=== PATIENT | female | born 1980 | race Caucasian/White ===

== ENCOUNTER 2017-12-30 09:48 | Emergency (ER) | payer MEDICAID ==
[~2017-12-30] VITALS: Ht 154.9 cm; Wt 72.6 kg
[2017-12-30 09:56] VITALS: BP 107/70
--- NOTE | 2017-12-30 10:07 | NUR ---
PT AMBULATED TO ER BED 06
--- NOTE | 2017-12-30 10:10 | NUR ---
37Y/F BIB SELF C/O LOWER ABDOMINAL PAIN X 4 DAYS. LAST PEROID 11/20/17. DIARRHEA X 3 EPISODES X YESTERDAY, DENIES N/V. SKIN IS PINK/WARM/DRY; AAOX4 WITH EVEN AND STEADY GAIT; LUNGS CLEAR BL; HR EVEN AND REGULAR; PATIENT STATES PAIN OF 5/10 AT THIS TIME; VSS; PATIENT POSITIONED FOR COMFORT; HOB ELEVATED; BEDRAILS UP X 1; BED DOWN. ER MD MADE AWARE OF PT STATUS.
--- NOTE | 2017-12-30 10:50 | NUR ---
Ultrasound at bedside.
[2017-12-30 11:02] LABS: BASOPHILS % (AUTO) 0.5 % (0.0-2.0); EOSINOPHILS # (AUTO) 0.1 K/uL (0-0.4); EOSINOPHILS % (AUTO) 1.4 % (0.0-4.0); HEMATOCRIT 37.3 % (36-48); HEMOGLOBIN 12.4 g/dL (12.0-16.0); LYMPHOCYTES # (AUTO) 2.1 K/uL (2.5-16.5); LYMPHOCYTES % (AUTO) 26.6 % (20.5-51.1); MEAN CORPUSCULAR HEMOGLOBIN 29 pg (27-31); MEAN CORPUSCULAR HGB CONC 33 g/dL (33-37); MEAN CORPUSCULAR VOLUME 86.8 fL (80-94); MONOCYTES # (AUTO) 0.7 K/uL (0.8-1.0); MONOCYTES % (AUTO) 8.6 % (1.7-9.3); NEUTROPHILS # (AUTO) 4.9 K/uL (1.8-7.7); NEUTROPHILS % (AUTO) 62.9 % (42.2-75.2); PLATELET COUNT (AUTO) 181 K/uL (140-450); RED CELL DISTRIBUTION WIDTH 13.2 % (11.6-13.7); WHITE BLOOD COUNT (AUTO) 7.8 K/uL (4.8-10.8)
[2017-12-30 11:29] LABS: ALBUMIN 3.4 g/dL (3.4-5.0); CARBON DIOXIDE 23.9 mmol/L (21-32); CREATININE 0.7 mg/dL (0.6-1.3); POTASSIUM 3.9 mmol/L (3.5-5.1); TOTAL BILIRUBIN 0.4 mg/dL (0.0-1.0)
[2017-12-30 11:52] LABS: APPEARANCE,URINE CLEAR (CLEAR); BILIRUBIN,URINE NEGATIVE (NEGATIVE); BLOOD, URINE 1+ (NEGATIVE); COLOR,URINE YELLOW (YELLOW); LEUKOCYTE ESTERASE ,URINE NEGATIVE (NEGATIVE); NITRITE, URINE NEGATIVE (NEGATIVE); PH,URINE 5.5 (5.0-9.0); UGLUCOSE NEGATIVE (NEGATIVE)
[2017-12-30 11:55] LABS: RBC,URINE 0-5 (RARE) /HPF (0-5); WBC,URINE 0-5 (RARE) /HPF (0-5)
--- NOTE | 2017-12-30 12:32 | NUR ---
Patient discharged with v/s stable. Written and verbal after care instructions given and explained. Patient verbalized understanding. Ambulatory with steady gait. All questions addressed prior to discharge. Advised to follow up with PMD.
[2017-12-30 12:33] VITALS: BP 99/70
== END 2017-12-30 12:32 | disposition home or self-care (01) ==
LOC: MED 09:48
DX: R19.7 Diarrhea, unspecified (principal); R10.9 Unspecified abdominal pain
CPT/HCPCS: 36415; 76817; 80053; 81001; 81025; 84702; 85025; 99285; Q0092

== ENCOUNTER 2018-01-01 11:19 | Emergency (ER) | payer MEDICAID ==
[~2018-01-01] VITALS: Ht 154.9 cm; Wt 72.6 kg
[2018-01-01 11:24] VITALS: BP 133/80
--- NOTE | 2018-01-01 11:24 | NUR ---
Pt taken to bed 11.
--- NOTE | 2018-01-01 11:35 | NUR ---
37 YO F BIB SELF FOR RECHECK. PT REPORTS SHE WAS HERE ON THURSDAY AND STATES THEY WERE UNABLE TO FIND A HEARTBEAT ON U/S. A0. PT DENIES ABD PAIN AT THIS TIME. DENIES N/V. PT A&O X 4. GCS 15. CMS INTACT. RR EVEN AND UNLABORED. LUNGS BILAT CLEAR. ABD SOFT, NON-TENDER. ER MD ROCK NOTIFIED. SAFETY PRECAUTIONS IN PLACE. PT NEEDS MET. WILL CONTINUE TO MONITOR.
--- NOTE | 2018-01-01 11:35 | NUR ---
LAB AT BEDSIDE AT THIS TIME.
[2018-01-01 12:38] VITALS: BP 133/80
--- NOTE | 2018-01-01 12:43 | NUR ---
Patient discharged with v/s stable. Written and verbal after care instructions given and explained. Patient verbalized understanding. Ambulatory with steady gait. All questions addressed prior to discharge. Advised to follow up with PMD and given referral to Dr MARIELOS Camacho for ENTRY LEVEL PROGRAMMER.
== END 2018-01-01 12:43 | disposition home or self-care (01) ==
LOC: MED 11:19
DX: Z34.91 Encounter for supervision of normal pregnancy, unspecified, first trimester (principal); Z3A.01 Less than 8 weeks gestation of pregnancy
CPT/HCPCS: 36415; 84702; 99283

== ENCOUNTER 2018-02-05 18:32 | Emergency (ER) | payer MEDICAID ==
[~2018-02-05] VITALS: Ht 154.9 cm; Wt 73.9 kg
[2018-02-05 18:39] VITALS: BP 120/69
[2018-02-05 19:12] LABS: BASOPHILS % (AUTO) 0.3 % (0.0-2.0); EOSINOPHILS # (AUTO) 0.1 K/uL (0-0.4); EOSINOPHILS % (AUTO) 1.2 % (0.0-4.0); HEMATOCRIT 38.5 % (36-48); HEMOGLOBIN 13.3 g/dL (12.0-16.0); LYMPHOCYTES # (AUTO) 2.7 K/uL (2.5-16.5); LYMPHOCYTES % (AUTO) 26.3 % (20.5-51.1); MEAN CORPUSCULAR HEMOGLOBIN 29 pg (27-31); MEAN CORPUSCULAR HGB CONC 35 g/dL (33-37); MONOCYTES # (AUTO) 0.8 K/uL (0.8-1.0); MONOCYTES % (AUTO) 7.9 % (1.7-9.3); NEUTROPHILS # (AUTO) 6.5 K/uL (1.8-7.7); NEUTROPHILS % (AUTO) 64.3 % (42.2-75.2); PLATELET COUNT (AUTO) 204 K/uL (140-450); RED BLOOD CELL COUNT(AUTO) 4.53 MIL/uL (4.20-5.40); RED CELL DISTRIBUTION WIDTH 12.6 % (11.6-13.7); WHITE BLOOD COUNT (AUTO) 10.1 K/uL (4.8-10.8)
[2018-02-05 19:16] LABS: APPEARANCE,URINE CLEAR (CLEAR); BILIRUBIN,URINE NEGATIVE (NEGATIVE); BLOOD, URINE 2+ (NEGATIVE); COLOR,URINE YELLOW (YELLOW); LEUKOCYTE ESTERASE ,URINE NEGATIVE (NEGATIVE); NITRITE, URINE NEGATIVE (NEGATIVE); PH,URINE 6.5 (5.0-9.0); UGLUCOSE NEGATIVE (NEGATIVE)
[2018-02-05 19:35] LABS: RBC,URINE 11-20 (MOD) /HPF (0-5)
[2018-02-05 23:20] VITALS: BP 108/78
== END 2018-02-05 23:20 | disposition home or self-care (01) ==
LOC: MED 18:32
DX: O20.0 Threatened abortion (principal); O26.891 Other specified pregnancy related conditions, first trimester; R82.71 Bacteriuria; Z3A.11 11 weeks gestation of pregnancy
CPT/HCPCS: 36415; 76817; 81001; 81025; 84702; 85025; 86900; 86901; 87086; 99285

== ENCOUNTER 2018-02-06 23:45 | Emergency (ER) | payer MEDICAID ==
[~2018-02-06] VITALS: Ht 154.9 cm; Wt 76.2 kg
[2018-02-06 23:57] VITALS: BP 109/69
--- NOTE | 2018-02-07 | NUR ---
TO BED # 4 AMBULATORY, REPORT GIVEN TO OJ AMATO
--- NOTE | 2018-02-07 00:05 | NUR ---
PATIENT PRESENTS TO ED WITH VAGINAL BLEEDINGX1 DAY. PATIENT STATES SHE IS CURRENTLY HAVING A MISCARRIAGE. PT DENIES N/V/D; SKIN IS PINK/WARM/DRY; AAOX4 WITH EVEN AND STEADY GAIT; LUNGS CLEAR BL; HR EVEN AND REGULAR; PT DENIES ANY FEVER, CP, SOB, OR COUGH AT THIS TIME; PATIENT STATES PAIN OF 0/10 AT THIS TIME; VSS; PATIENT POSITIONED FOR COMFORT; HOB ELEVATED; BEDRAILS UP X1; BED DOWN. ER MD MADE AWARE OF PT STATUS.
[2018-02-07 00:35] LABS: BASOPHILS % (AUTO) 0.4 % (0.0-2.0); EOSINOPHILS # (AUTO) 0.1 K/uL (0-0.4); HEMATOCRIT 35.9 % (36-48); HEMOGLOBIN 12.3 g/dL (12.0-16.0); LYMPHOCYTES # (AUTO) 3.5 K/uL (2.5-16.5); LYMPHOCYTES % (AUTO) 33.7 % (20.5-51.1); MEAN CORPUSCULAR HEMOGLOBIN 29 pg (27-31); MEAN CORPUSCULAR HGB CONC 34 g/dL (33-37); MEAN CORPUSCULAR VOLUME 84.6 fL (80-94); MONOCYTES # (AUTO) 0.8 K/uL (0.8-1.0); MONOCYTES % (AUTO) 7.4 % (1.7-9.3); NEUTROPHILS # (AUTO) 5.9 K/uL (1.8-7.7); NEUTROPHILS % (AUTO) 57.5 % (42.2-75.2); PLATELET COUNT (AUTO) 196 K/uL (140-450); RED BLOOD CELL COUNT(AUTO) 4.24 MIL/uL (4.20-5.40); WHITE BLOOD COUNT (AUTO) 10.4 K/uL (4.8-10.8)
[2018-02-07 00:42] LABS: CARBON DIOXIDE 26.3 mmol/L (21-32); CREATININE 0.8 mg/dL (0.6-1.3); POTASSIUM 4.3 mmol/L (3.5-5.1)
[2018-02-07 00:49] LABS: ALBUMIN 3.7 g/dL (3.4-5.0); TOTAL BILIRUBIN 0.4 mg/dL (0.0-1.0)
[2018-02-07 02:50] VITALS: BP 109/69
== END 2018-02-07 02:49 | disposition home or self-care (01) ==
LOC: MED 23:45
DX: O03.4 Incomplete spontaneous abortion without complication (principal); Z3A.11 11 weeks gestation of pregnancy
CPT/HCPCS: 36415; 76801; 80053; 84702; 85025; 99285; Q0092

== ENCOUNTER 2018-06-20 19:53 | Emergency (ER) | payer MEDICAID, OTHER ==
[~2018-06-20] VITALS: Ht 154.9 cm; Wt 75.3 kg
[2018-06-20 19:57] VITALS: BP 137/88
[2018-06-20] MEDS ORDERED: AMOXICILLIN 500 MG CAP PO ONE (22:15)
[2018-06-20] MEDS ORDERED: IBUPROFEN 600 MG TAB PO ONE (22:15)
[2018-06-20] MEDS ORDERED: HYDROcodone/APAP 5/325 MG 1 TAB TAB PO ONE (22:15)
[2018-06-20 23:00] VITALS: BP 128/85
== END 2018-06-20 23:00 | disposition home or self-care (01) ==
LOC: MED 19:53
DX: J02.9 Acute pharyngitis, unspecified (principal); I88.9 Nonspecific lymphadenitis, unspecified
CPT/HCPCS: 99283

== ENCOUNTER 2018-11-08 07:14 | Emergency (ER) | payer OTHER ==
[~2018-11-08] VITALS: Ht 154.9 cm; Wt 72.6 kg
[2018-11-08 07:29] VITALS: BP 140/88
--- NOTE | 2018-11-08 07:34 | NUR ---
PT AMBULATED TO ER BED 07
--- NOTE | 2018-11-08 07:40 | NUR ---
THIS PT BIB SELF TO THE ED WITH THE CHIEF C/O NON RADIATING CONSTANT LEFT CHEST PAIN STARTED YESTERDAY. STATES IT HURTS MORE WHEN BREATH IN. DENIES NAUSEA OR VOMITING. REPORTS DIZZINESS. VSS. LUNGS CLEAR ON AUSCULTATION. S1S2 HEARD. DENIES ANY COUGH. DENIES TAKING ANY MEDICINE FOR PAIN. DENIES ANY MEDICAL HX.
--- NOTE | 2018-11-08 08:05 | NUR ---
EKG IN PROCESS. LAB AT BEDSIDE.
[2018-11-08 08:22] LABS: BASOPHILS % (AUTO) 0.4 % (0.0-2.0); EOSINOPHILS # (AUTO) 0.1 K/uL (0-0.4); EOSINOPHILS % (AUTO) 1.1 % (0.0-4.0); HEMATOCRIT 40.5 % (36-48); HEMOGLOBIN 13.6 g/dL (12.0-16.0); LYMPHOCYTES # (AUTO) 1.8 K/uL (2.5-16.5); LYMPHOCYTES % (AUTO) 20.6 % (20.5-51.1); MEAN CORPUSCULAR HEMOGLOBIN 29 pg (27-31); MEAN CORPUSCULAR HGB CONC 34 g/dL (33-37); MEAN CORPUSCULAR VOLUME 86.3 fL (80-94); MONOCYTES # (AUTO) 0.9 K/uL (0.8-1.0); MONOCYTES % (AUTO) 10.2 % (1.7-9.3); NEUTROPHILS # (AUTO) 5.9 K/uL (1.8-7.7); NEUTROPHILS % (AUTO) 67.7 % (42.2-75.2); PLATELET COUNT (AUTO) 233 K/uL (140-450); RED CELL DISTRIBUTION WIDTH 13.9 % (11.6-13.7); WHITE BLOOD COUNT (AUTO) 8.7 K/uL (4.8-10.8)
[2018-11-08 08:33] LABS: ANION GAP 15.2 (8-16); CARBON DIOXIDE 25.8 mmol/L (21-32); CREATININE 0.6 mg/dL (0.6-1.3)
[2018-11-08 08:50] LABS: PROTHROMBIN TIME 9.7 secs (10.8-13.4)
[2018-11-08 08:55] LABS: D-DIMER < 100 ng/ml (0-400)
[2018-11-08 09:25] LABS: ALBUMIN 3.6 g/dL (3.4-5.0); TOTAL BILIRUBIN 0.4 mg/dL (0.0-1.0)
[2018-11-08 09:30] LABS: BARBITURATE, URINE NEG ng/ml (NEG <=200); BENZODIAZEPINE, URINE NEG ng/mL (NEG <=200); CANNABINOID, URINE NEG ng/mL (NEG <=50); COCAINE, URINE NEG ng/mL (NEG <=300); OPIATE, URINE NEG ng/mL (NEG <=2000); PHENCYCLIDINE SCREEN,URINE NEG ng/mL (NEG <=25)
--- NOTE | 2018-11-08 09:33 | NUR ---
SLEEPING AT THIS TIME. VSS. CONTINUE ON MONITOR.
--- NOTE | 2018-11-08 09:43 | NUR ---
BEING RE-EVALUATED BY WILMER BAINS.
--- NOTE | 2018-11-08 09:52 | NUR ---
Patient discharged with v/s stable. Written and verbal after care instructions given and explained. Patient alert, oriented and verbalized understanding of instructions. Ambulatory with steady gait. All questions addressed prior to discharge. ID band removed. Patient advised to follow up with PMD. Rx of VISTARIL given. Patient educated on indication of medication including possible reaction and side effects. Opportunity to ask questions provided and answered.
[2018-11-08 09:53] VITALS: BP 110/71
== END 2018-11-08 09:52 | disposition home or self-care (01) ==
LOC: MED 07:14
DX: F41.9 Anxiety disorder, unspecified (principal)
CPT/HCPCS: 36415; 71045; 80053; 80305; 81002; 81025; 83735; 83880; 84484; 85025; 85379; 85610; 85730; 93005; 99284; Q0092

== ENCOUNTER 2019-09-27 08:18 | Emergency (ER) | payer OTHER ==
[~2019-09-27] VITALS: Ht 154.9 cm; Wt 70.8 kg
[2019-09-27 08:22] VITALS: BP 104/65
--- NOTE | 2019-09-27 08:29 | NUR ---
39 YO FEMALE CO OF COUGH AND SORE THROAT X3D. PT STATES PAIN IS 10/10 IN HER THROAT. LUNG SOUNDS CLEAR THROUGHOUT. PT HAS NO PAST MED HX AND IS NOT TAKING ANY RX MEDS AT HOME. NO ONE ELSE AT HOME SICK. PT IS SITTING N BED WITH 1X SIDE RAIL UP.
[2019-09-27] MEDS ORDERED: DEXAMETHASONE 10 MG/ML VIAL IM ONE (08:40)
--- NOTE | 2019-09-27 09:05 | NUR ---
THROAT SWAB FOR STREP AND THROAT CULTURE DONE AND SENT TO LAB.
[2019-09-27 11:13] VITALS: BP 110/73
--- NOTE | 2019-09-27 11:14 | NUR ---
Patient discharged with v/s stable. Written and verbal after care instructions given and explained. Patient alert, oriented and verbalized understanding of instructions. Ambulatory with steady gait. All questions addressed prior to discharge. ID band removed. Patient advised to follow up with PMD. Rx of NORCO AND AMOXICILLIAN given. Patient educated on indication of medication including possible reaction and side effects. Opportunity to ask questions provided and answered.
== END 2019-09-27 11:14 | disposition home or self-care (01) ==
LOC: MED 08:18
DX: J02.9 Acute pharyngitis, unspecified (principal)
CPT/HCPCS: 87081; 96372; 99283; J1100

== ENCOUNTER 2020-03-07 15:48 | Emergency (ER) | payer OTHER, SELFPAY ==
[~2020-03-07] VITALS: Ht 167.6 cm; Wt 59.9 kg
--- NOTE | 2020-03-07 15:59 | NUR ---
PT SEEN AND EVALUATED BY MAGDI BREWSTER. PT SWABBED IN TENT
[2020-03-07 16:07] VITALS: BP 115/82
[2020-03-07 17:37] VITALS: BP 115/82
--- NOTE | 2020-03-07 17:38 | NUR ---
COVID-19 SWAB COLLECTED AND TAKEN TO LAB
== END 2020-03-07 17:38 | disposition home or self-care (01) ==
LOC: EEVIPCON 15:48 → MED 15:48
DX: R05 Cough (principal); Z20.828 Contact with and (suspected) exposure to other viral communicable diseases; Z98.890 Other specified postprocedural states
CPT/HCPCS: 99283; U0003

== ENCOUNTER 2020-04-29 14:31 | Emergency (ER) | payer OTHER, SELFPAY ==
[~2020-04-29] VITALS: Ht 154.9 cm; Wt 75.3 kg
[2020-04-29 14:42] VITALS: BP 132/79
[2020-04-29] MEDS ORDERED: ASPIRIN 325 MG TAB PO ONE (15:05)
--- NOTE | 2020-04-29 15:10 | NUR ---
XRay at bedside
--- NOTE | 2020-04-29 15:20 | NUR ---
C/O 04/02 CONSTANT LEFT CHEST PAIN RADIATING TO LEFT ARM X TODAY. DENIES TRUAM OR N/V.PT AOX 4 , AFIBRILE , AMBULATORY WITH STEADY GAIT, PINK PALPEBRAL CONJUNCTIVA , ANICTERIC SCLERA , SCE , FLAT SOFT ABDOMEN. MED HX: DENIES
--- NOTE | 2020-04-29 15:28 | NUR ---
labs at bedside.
[2020-04-29 15:40] LABS: BASOPHILS # (AUTO) 0.1 K/uL (0.00-0.22); BASOPHILS % (AUTO) 0.6 % (0.0-2.0); EOSINOPHILS # (AUTO) 0.1 K/uL (0-0.4); EOSINOPHILS % (AUTO) 0.9 % (0.0-4.0); HEMATOCRIT 37.8 % (36-48); HEMOGLOBIN 12.2 g/dL (12.0-16.0); LYMPHOCYTES # (AUTO) 2.2 K/uL (2.5-16.5); LYMPHOCYTES % (AUTO) 25.3 % (20.5-51.1); MEAN CORPUSCULAR HEMOGLOBIN 29 pg (27-31); MEAN CORPUSCULAR HGB CONC 32 g/dL (33-37); MEAN CORPUSCULAR VOLUME 88.4 fL (80-94); MONOCYTES # (AUTO) 0.8 K/uL (0.8-1.0); MONOCYTES % (AUTO) 9.3 % (1.7-9.3); NEUTROPHILS # (AUTO) 5.5 K/uL (1.8-7.7); NEUTROPHILS % (AUTO) 63.9 % (42.2-75.2); PLATELET COUNT (AUTO) 201 K/uL (140-450); RED BLOOD CELL COUNT(AUTO) 4.27 MIL/uL (4.20-5.40); RED CELL DISTRIBUTION WIDTH 13.7 % (11.6-13.7); WHITE BLOOD COUNT (AUTO) 8.6 K/uL (4.8-10.8)
--- NOTE | 2020-04-29 15:46 | NUR ---
PT MOVED TO BED 09
[2020-04-29 16:09] LABS: ALBUMIN 3.7 g/dL (3.4-5.0); ANION GAP 15.9 (8-16); CARBON DIOXIDE 22.2 mmol/L (21-32); CREATININE 0.6 mg/dL (0.6-1.3); POTASSIUM 3.1 mmol/L (3.5-5.1); TOTAL BILIRUBIN 0.4 mg/dL (0.0-1.0)
[2020-04-29 16:26] LABS: CREATINE KINASE MB 0.6 ng/mL (0-3.6)
--- NOTE | 2020-04-29 17:12 | NUR ---
DR. PATINO SPEAKING W/ PT AT BEDSIDE
[2020-04-29] MEDS ORDERED: LORazepam 0.5 MG TAB PO ONE (18:20)
[2020-04-29] MEDS ORDERED: KETOROLAC 30 MG/ML VIAL IM ONE (18:20)
[2020-04-29 18:50] VITALS: BP 111/72
== END 2020-04-29 18:49 | disposition home or self-care (01) ==
LOC: MED 14:31
DX: R07.9 Chest pain, unspecified (principal)
CPT/HCPCS: 36415; 71045; 80053; 82550; 82553; 83690; 84484; 85025; 93005; 96372; 99285; J1885; Q0092

== ENCOUNTER 2020-07-18 21:58 | Emergency (ER) | payer OTHER, SELFPAY ==
[~2020-07-18] VITALS: Ht 154.9 cm; Wt 72.6 kg
[2020-07-18 22:07] VITALS: BP 101/71
--- NOTE | 2020-07-18 22:13 | NUR ---
PT AMBULATED BACK TO THE LOBBY, PT IS NOT IN ANY ACUTE DISTRESS AT THIS TIME.
--- NOTE | 2020-07-18 22:30 | NUR ---
LIMA Nichols found pt on floor. did not witness fall. Dr. Gaming paged. no injuries observed or noted. pt a/o x 4.
--- NOTE | 2020-07-18 22:32 | NUR ---
pt helped on to w/c, witnessed 2 emesis episodes, about 300cc each one accompanied with 20 second tonic-clonic .
[2020-07-18] MEDS ORDERED: LORazepam 2 MG/ML VIAL IM ONE (22:42)
--- NOTE | 2020-07-18 22:48 | NUR ---
BLOOD CULTURES AND LABS COLLECTED AND HANDED TO LAB.
--- NOTE | 2020-07-18 23:10 | NUR ---
taken to bed 06
--- NOTE | 2020-07-18 23:20 | NUR ---
TO CT VIA GURNEY ATTACHED TO ROVERTO RN ACCOMPANIED
--- NOTE | 2020-07-18 23:30 | NUR ---
RETURNED FROM CT
--- NOTE | 2020-07-18 23:35 | NUR ---
EKG PERFORMED AT BEDSIDE. EKG READS SINUS RHYTHM @ 98
[2020-07-18 23:40] LABS: BASOPHILS # (AUTO) 0.1 K/uL (0.00-0.22); BASOPHILS % (AUTO) 0.5 % (0.0-2.0); EOSINOPHILS # (AUTO) 0.2 K/uL (0-0.4); EOSINOPHILS % (AUTO) 1.6 % (0.0-4.0); HEMOGLOBIN 11.8 g/dL (12.0-16.0); LYMPHOCYTES % (AUTO) 43.7 % (20.5-51.1); MEAN CORPUSCULAR HEMOGLOBIN 29 pg (27-31); MEAN CORPUSCULAR HGB CONC 33 g/dL (33-37); MEAN CORPUSCULAR VOLUME 87.1 fL (80-94); MONOCYTES # (AUTO) 0.9 K/uL (0.8-1.0); MONOCYTES % (AUTO) 8.2 % (1.7-9.3); NEUTROPHILS # (AUTO) 5.3 K/uL (1.8-7.7); PLATELET COUNT (AUTO) 226 K/uL (140-450); RED BLOOD CELL COUNT(AUTO) 4.13 MIL/uL (4.20-5.40); RED CELL DISTRIBUTION WIDTH 13.7 % (11.6-13.7); WHITE BLOOD COUNT (AUTO) 11.5 K/uL (4.8-10.8)
--- NOTE | 2020-07-18 23:43 | NUR ---
Female Diving Instructor accompanied female patient for Rectal Exam BY .
[2020-07-19] LABS: ANION GAP 15.3 (8-16); CARBON DIOXIDE 23.7 mmol/L (21-32); CREATININE 0.7 mg/dL (0.6-1.3)
--- NOTE | 2020-07-19 01:18 | NUR ---
PT TAKEN TO CT
--- NOTE | 2020-07-19 01:30 | NUR ---
PT RETUNED FROM CT VIA [employer] [facility].
[2020-07-19 02:16] LABS: BASOPHILS % (AUTO) 0.3 % (0.0-2.0); EOSINOPHILS % (AUTO) 0.4 % (0.0-4.0); HEMATOCRIT 32.1 % (36-48); HEMOGLOBIN 10.8 g/dL (12.0-16.0); LYMPHOCYTES # (AUTO) 1.7 K/uL (2.5-16.5); LYMPHOCYTES % (AUTO) 18.5 % (20.5-51.1); MEAN CORPUSCULAR HEMOGLOBIN 29 pg (27-31); MEAN CORPUSCULAR HGB CONC 34 g/dL (33-37); MEAN CORPUSCULAR VOLUME 86.6 fL (80-94); MONOCYTES # (AUTO) 0.6 K/uL (0.8-1.0); MONOCYTES % (AUTO) 6.6 % (1.7-9.3); NEUTROPHILS # (AUTO) 6.8 K/uL (1.8-7.7); NEUTROPHILS % (AUTO) 74.2 % (42.2-75.2); PLATELET COUNT (AUTO) 181 K/uL (140-450); RED BLOOD CELL COUNT(AUTO) 3.71 MIL/uL (4.20-5.40); RED CELL DISTRIBUTION WIDTH 13.1 % (11.6-13.7); WHITE BLOOD COUNT (AUTO) 9.2 K/uL (4.8-10.8)
--- NOTE | 2020-07-19 02:17 | NUR ---
PT AMBULATED TO RESTROOM W/ STEADY GAIT.
--- NOTE | 2020-07-19 02:19 | NUR ---
PT RETURNED FROM RESTROOM TO ER BED 6 W/ STEADY GAIT.
--- NOTE | 2020-07-19 04:15 | NUR ---
COVERING FOR PRIMARY NURSE WHILE SHE IS ON A DIFFERENT UNIT AT THIS TIME---- PT IS ASLEEP IN BED, HOB ELEVATED IN SEMI-FOWLERS, SIDE RAILSX2 FOR PT PROTECTION. SEIZURE PRECAUTIONS IN PLACE. PT CONNECTED TO THE COMMISSIONER OF OFFICIALS SAO2 @ 100%. PT IS NOT IN ANY ACUTE DISTRESS AT THIS TIME.BED IS LOCKED AND IN LOWEST POSITION. WILL CONTINUE TO MONITOR.
--- NOTE | 2020-07-19 05:05 | NUR ---
AWAKENED EASILY FOR ORTHOSTATIC VS
[2020-07-19 05:30] VITALS: BP 98/69
--- NOTE | 2020-07-19 05:30 | NUR ---
Patient discharged with v/s stable. Written and verbal after care instructions given and explained. Patient alert, oriented and verbalized understanding of instructions. Ambulatory with steady gait. All questions addressed prior to discharge. ID band removed. Patient advised to follow up with PMD. Rx of hydrocortisone acetate pr given. Patient educated on indication of medication including possible reaction and side effects. Opportunity to ask questions provided and answered.
== END 2020-07-19 05:30 | disposition home or self-care (01) ==
LOC: MED 21:58
DX: R56.9 Unspecified convulsions (principal); K64.8 Other hemorrhoids
CPT/HCPCS: 36415; 70450; 71045; 74174; 80048; 84484; 84702; 85025; 86886; 86900; 86901; 93005; 96372; 99285; Q9967

== ENCOUNTER 2021-04-11 12:57 | Emergency (ER) | payer OTHER, SELFPAY ==
--- NOTE | 2021-04-11 13:20 | NUR ---
CALLX1. NO SHOW.
--- NOTE | 2021-04-11 13:29 | NUR ---
CALLX2. NO SHOW
[2021-04-12] MEDS ORDERED: PRED20TA5 PO (11:28)
[2021-04-12] MEDS ORDERED: IBUP-2213 PO (11:29)
== END 2021-04-11 13:29 | disposition left against medical advice (07) ==
LOC: MED 12:57
DX: R05 Cough (principal); Z53.21 Procedure and treatment not carried out due to patient leaving prior to being seen by health care provider

== ENCOUNTER 2021-04-12 09:17 | Emergency (ER) | payer OTHER, SELFPAY ==
[~2021-04-12] VITALS: Ht 154.9 cm; Wt 74.4 kg
[2021-04-12 09:25] VITALS: BP 102/88
--- NOTE | 2021-04-12 09:28 | NUR ---
PT OUTSIDE IN COVID TENT FOR ISOLATION.
--- NOTE | 2021-04-12 09:37 | NUR ---
40/F c/o cough x2 weeks and headache for the last 3 days to right parietal. Pt states she was tested at work for covid on Thursday and does not have the results yet.
[2021-04-12] MEDS ORDERED: PRED20TA5 PO (11:28)
[2021-04-12] MEDS ORDERED: IBUP-2213 PO (11:29)
[2021-04-12 11:49] VITALS: BP 118/82
--- NOTE | 2021-04-12 11:50 | NUR ---
Patient discharged with v/s stable. Written and verbal after care instructions given COUGH AND GENERAL HEADACHE and explained. Patient alert, oriented and verbalized understanding of instructions. Ambulatory with steady gait. All questions addressed prior to discharge. ID band removed. Patient advised to follow up with PMD. Rx of IBUPROFEN 400MG PO TID PRN PAIN, AND PREDNISONE 60MG PO DAILY PRN COUGH given. Patient educated on indication of medication including possible reaction and side effects. Opportunity to ask questions provided and answered.
== END 2021-04-12 11:50 | disposition home or self-care (01) ==
LOC: MED 09:17
DX: R51.9 Headache, unspecified (principal); R05 Cough
CPT/HCPCS: 99283

== ENCOUNTER 2021-11-25 14:10 | Emergency (ER) | payer OTHER, SELFPAY ==
[~2021-11-25] VITALS: Ht 154.9 cm; Wt 74.8 kg
[~2021-11-25 14:10] MED LIST: IBUP-2213 PO; PRED20TA5 PO
[2021-11-25 14:17] VITALS: BP 120/76
[2021-11-25] MEDS ORDERED: NAPR-54 PO (14:37)
[2021-11-25] MEDS ORDERED: AZIT250T3 PO (14:37)
--- NOTE | 2021-11-25 14:46 | NUR ---
d/c with VSS. d/c education given. opportunity to ask questions given and answered. rx of naprosyn and zithromax given.
== END 2021-11-25 14:46 | disposition home or self-care (01) ==
LOC: MED 14:10
DX: G44.209 Tension-type headache, unspecified, not intractable (principal); J01.90 Acute sinusitis, unspecified
CPT/HCPCS: 99283

== ENCOUNTER 2022-02-18 11:31 | Emergency (ER) | payer OTHER ==
[~2022-02-18] VITALS: Ht 154.9 cm; Wt 74.4 kg
[~2022-02-18 11:31] MED LIST changes: +AZIT250T3 PO; +NAPR-54 PO
[2022-02-18 11:43] VITALS: BP 126/77
--- NOTE | 2022-02-18 11:48 | NUR ---
PT AMBULATED TO BED 7 WITH STEADY GAIT
--- NOTE | 2022-02-18 11:48 | NUR ---
AMBULATED TO BATHROOM
--- NOTE | 2022-02-18 12:18 | NUR ---
MAGDI KAUFFMAN AT BEDSIDE EVALUATING PT
[2022-02-18] MEDS ORDERED: KETOROLAC 30 MG/ML VIAL IM ONE (12:20)
--- NOTE | 2022-02-18 13:38 | NUR ---
SWABS COLLECTED AND SENT TO LAB
--- NOTE | 2022-02-18 15:32 | NUR ---
PT MOVED TO CHAIR C
[2022-02-18] MEDS ORDERED: IBUP-1842 PO (15:35)
[2022-02-18 15:46] VITALS: BP 100/77
--- NOTE | 2022-02-18 15:47 | NUR ---
The patient's care was reviewed and supervised by Marilyn Poe RN.
== END 2022-02-18 15:46 | disposition home or self-care (01) ==
LOC: EEVIPCON 11:31 → MED 11:31
DX: J02.8 Acute pharyngitis due to other specified organisms (principal); Z20.822 Contact with and (suspected) exposure to COVID-19; B97.89 Other viral agents as the cause of diseases classified elsewhere
CPT/HCPCS: 87081; 87426; 96372; 99283; J1885

== ENCOUNTER 2022-07-10 17:02 | Emergency (ER) | payer OTHER ==
[~2022-07-10] VITALS: Ht 144.8 cm; Wt 81.2 kg
[~2022-07-10 17:02] MED LIST changes: +IBUP-1842 PO
[2022-07-10 17:21] VITALS: BP 108/75
[2022-07-10] MEDS ORDERED: ALBUTEROL SULFATE/IPRATROPIU 3 ML SOL IH ONE (17:50)
--- NOTE | 2022-07-10 19:20 | NUR ---
RT ADMINISTERING BREATHING TREATMENT , TOLERATED WELL.
[2022-07-10] MEDS ORDERED: ALBU0.0912 IH (19:32)
[2022-07-10] MEDS ORDERED: PRED20TA5 PO (19:32)
[2022-07-10] MEDS ORDERED: PROM118S5 PO (19:33)
[2022-07-10 20:05] VITALS: BP 120/79
--- NOTE | 2022-07-10 20:05 | NUR ---
Patient discharged with v/s stable. Written and verbal after care instructions given and explained. Patient alert, oriented and verbalized understanding of instructions. Ambulatory with steady gait. All questions addressed prior to discharge. ID band removed. Patient advised to follow up with PMD. Rx of ALBUTEROL,DELTASONE,PROMETHAZINE given. Patient educated on indication of medication including possible reaction and side effects. Opportunity to ask questions provided and answered.
== END 2022-07-10 20:05 | disposition home or self-care (01) ==
LOC: MED 17:02
DX: J20.9 Acute bronchitis, unspecified (principal); Z79.899 Other long term (current) drug therapy
CPT/HCPCS: 71045; 94640; 99283

== ENCOUNTER 2022-10-06 20:00 | Emergency (ER) | payer OTHER ==
[~2022-10-06] VITALS: Ht 154.9 cm; Wt 77.1 kg
[~2022-10-06 20:00] MED LIST changes: +ALBU0.0912 IH; +PROM118S5 PO
[2022-10-06 20:40] VITALS: BP 114/83
--- NOTE | 2022-10-06 20:43 | NUR ---
to lobby a/w bed ambulatory
[2022-10-06] MEDS ORDERED: NACL 0.9% 1,000 ML IV ONE (21:45)
[2022-10-06] MEDS ORDERED: ONDANSETRON 4 MG ODT PO ONE (21:45)
[2022-10-06] MEDS ORDERED: LOPERAMIDE 2 MG CAP PO ONE (21:45)
--- NOTE | 2022-10-06 22:20 | NUR ---
PT TAKEN TO BED 5
[2022-10-06] MEDS ORDERED: KETOROLAC 15 MG/ML VIAL IVP ONE (22:25)
[2022-10-06] MEDS ORDERED: ONDANSETRON 4 MG/2 ML VIAL IVP ONE (22:25)
[2022-10-06 23:30] LABS: APPEARANCE,URINE CLEAR (CLEAR); BILIRUBIN,URINE SMALL (NEGATIVE); BLOOD, URINE MODERATE (NEGATIVE); COLOR,URINE YELLOW (YELLOW); LEUKOCYTE ESTERASE ,URINE NEGATIVE (NEGATIVE); NITRITE, URINE NEGATIVE (NEGATIVE); UGLUCOSE NEGATIVE (NEGATIVE)
[2022-10-06] MEDS ORDERED: LOPERAMIDE 2 MG CAP ONE (23:46)
[2022-10-07] MEDS ORDERED: ONDA-188 PO (00:04)
[2022-10-07] MEDS ORDERED: IMO2 PO (00:04)
[2022-10-07] MEDS ORDERED: NITR100C7 PO (00:04)
[2022-10-07] MEDS ORDERED: IBUP-2213 PO (00:04)
[2022-10-07 00:50] VITALS: BP 113/68
--- NOTE | 2022-10-07 00:50 | NUR ---
Patient discharged with v/s stable. Written and verbal after care instructions given and explained. Patient alert, oriented and verbalized understanding of instructions. Ambulatory with . All questions addressed prior to discharge. ID band removed. Patient advised to follow up with PMD. Rx of IBUPROFEN,LOPERAMIDE AND ZOFRAN given. Patient educated on indication of medication including possible reaction and side effects. Opportunity to ask questions provided and answered.
--- NOTE | 2022-10-09 13:24 | NUR ---
LATE ENTRY -- CONFIRMED WITH NURSE NS INFUSION COMPLETED AT 9711 10/06/22
== END 2022-10-07 00:50 | disposition home or self-care (01) ==
LOC: MED 20:00
DX: B34.9 Viral infection, unspecified (principal); Z20.822 Contact with and (suspected) exposure to COVID-19; N39.0 Urinary tract infection, site not specified; R51.9 Headache, unspecified; R11.2 Nausea with vomiting, unspecified; R19.7 Diarrhea, unspecified; Z79.899 Other long term (current) drug therapy
CPT/HCPCS: 81001; 87086; 87426; 87804; 96361; 96374; 96375; 99284; J1885; J2405; 99283

== ENCOUNTER 2023-05-27 11:44 | Emergency (ER) | payer MEDICAID, OTHER ==
[~2023-05-27] VITALS: Ht 154.9 cm; Wt 76.4 kg
[~2023-05-27 11:44] MED LIST changes: +IMO2 PO; +NITR100C7 PO; +ONDA-188 PO
[2023-05-27 12:04] VITALS: BP 108/85; PULSE 88; RESP 18; TEMP 98.1; O2SAT 100
[2023-05-27] MEDS ORDERED: MECL-303 PO (12:26)
== END 2023-05-27 12:35 | disposition home or self-care (01) ==
LOC: MED 11:44
DX: H81.10 Benign paroxysmal vertigo, unspecified ear (principal); R03.0 Elevated blood-pressure reading, without diagnosis of hypertension; Z79.899 Other long term (current) drug therapy; Z79.2 Long term (current) use of antibiotics; Z79.1 Long term (current) use of non-steroidal anti-inflammatories (NSAID)
CPT/HCPCS: 99283